=== PATIENT | male | born 1940 | race Two or more races ===

== ENCOUNTER 2017-11-21 04:36 | Emergency (ER) | payer OTHER ==
[~2017-11-21] VITALS: Ht 160 cm; Wt 73.9 kg
[~2017-11-21 04:36] MED LIST: BENADRYL25 MG PO; CORTIZONE-10 PL28 GM TOP; MEDROLPACK PO; ZYRTEC10 M3 PO
[2017-11-21] MEDS ORDERED: ORPHENADRINE C100 MG PO (04:59)
[2017-11-21] MEDS ORDERED: DICLOFENAC POTA50 MG PO (05:01)
[2017-11-21] MEDS ORDERED: VOLTAREN-XR100 MG PO (08:20)
== END 2017-11-21 08:32 | disposition home or self-care (01) ==
LOC: ER 04:36
DX: S80.01XA Contusion of right knee, initial encounter (principal); W18.09XA Striking against other object with subsequent fall, initial encounter; Y93.89 Activity, other specified; Y92.89 Other specified places as the place of occurrence of the external cause; Y99.8 Other external cause status